=== PATIENT | female | born 1945 | race Caucasian/White ===

== ENCOUNTER 2024-04-03 08:42 | Day surgery (SDC) | payer OTHER ==
[2024-04-03 08:40] LABS: Absolute Eosinophils 0.3 K/uL (0-0.5); Absolute Lymphocytes (CBC) 1.4 K/uL (0.7-4.9); Absolute Monocytes 0.4 K/uL (0.1-1.3); Absolute Neutrophil 2.6 K/uL (1.8-8.0); Basophils % 0.8 % (0-1.3); Eosinophils % 5.7 % (0-4.4); Hemoglobin 11.6 g/dL (12.0-15.0); Lymphocytes % 29.8 % (15.3-44.8); MCH 29.3 pg (27.0-35.0); MCHC 33.1 g/dL (32.0-36.0); MCV 88.5 fL (80-100); MPV 7.1 fL (7.6-11.3); Monocytes % 8.3 % (3.3-12.3); Neutrophils % 55.4 % (41.7-73.7); Platelets 233 thou/uL (152-406); RBC Red Blood Cell Count 3.95 M/uL (3.86-4.86); Red Cell Distribution Width 13.9 % (12.1-15.2)
[2024-04-03 08:52] LABS: Anion Gap 5.8 mEq/L (5.0-15.0); Potassium 3.8 mEq/L (3.5-5.1)
[2024-04-03] MEDS ORDERED: CEFAZOLIN SODIUM 1 GM/VIAL ONE (08:56)
[2024-04-03] MEDS ORDERED: Ringers Lactate 1,000 ML IV ONE (08:56)
[2024-04-03] MEDS ORDERED: KETOROLAC 30 MG/ML INJ ONE (09:05)
[2024-04-03] MEDS ORDERED: propofoL 200 MG/20 ML VIAL IV ONE (09:05)
[2024-04-03] MEDS ORDERED: dexAMETHasone 10 MG/ML VIAL ONE (09:05)
[2024-04-03] MEDS ORDERED: ONDANSETRON 4 MG/2 ML VIAL ONE (09:05)
[2024-04-03] MEDS ORDERED: MIDAZOLAM HCL 2 MG/2 ML INJ ONE (09:05)
[2024-04-03] MEDS ORDERED: LIDOCAINE 1% MPF 5 ML VIAL ONE (09:05)
[2024-04-03] MEDS ORDERED: FENTANYL CITR 100 MCG/2 ML ONE (09:05)
[2024-04-03] MEDS ORDERED: ROCURONIUM 50 MG/5 ML VIAL IV ONE (09:05)
--- NOTE | 2024-04-03 09:47 | RAD REPORT ---
EXAM DESCRIPTION: RAD - Chest Pa And Lat (2 Views) - 04/03/2024 8:44 am CLINICAL HISTORY: pre op pending hernia repair Chest pain. COMPARISON: Chest Pa And Lat (2 Views) dated 11/04/2016 TECHNIQUE: PA and lateral views of the chest were obtained. FINDINGS: The lungs are hyperexpanded compatible with COPD. The heart is upper limit of normal in si ze. No fracture or aggressive bony process. IMPRESSION: COPD without acute process identified. The USPSTF recommends annual screening for lung cancer with low-dose CT (LDCT) in adults aged 50 to 8 0 years who have a 20 pack-year smoking history and currently smoke or have quit within the past 15 y ears.
[2024-04-03] MEDS ORDERED: EPHEDRINE SULF 50 MG/ML VIAL ONE (10:23)
--- NOTE | 2024-04-03 11:48 | P.BOP ---
Preoperative diagnosis: tender bilateral inguinal hernias Postoperative diagnosis: same Primary procedure: 1. Open repair of tender right inguinal hernia with mesh Secondary procedure: 2. Open repair of tender left inguinal hernia with mesh Estimated blood loss: <10cc Specimen: sac left Findings: bilateral inguinal hernias Anesthesia: General Complications: None Transferred to: Recovery Room Condition: Good
[2024-04-03] MEDS: HYDROCODONE/APAP 5/325 MG TAB ONE (13:00)
[2024-04-03 13:17] VITALS: BP 130/49; TEMP 97.6
[2024-04-03 13:36] VITALS: O2SAT 97
--- NOTE | 2024-04-04 16:25 | EKG ---
Test Date: 2024-04-03 Test Time: 08:29:00 Cyber Security Specialist: JANELL MEASUREMENT RESULTS: Intervals: Rate: 59 TX: 170 QRSD: 86 QT: 446 QTc: 441 [place]: P: 60 TX: 170 QRS: 59 T: 59 INTERPRETIVE STATEMENTS: Sinus bradycardia Otherwise normal ECG No previous ECG available for comparison Electronically Signed On 04-04-24 16:22:35 CDT by Juan Luis Almazan
== END 2024-04-03 13:30 | disposition home or self-care (01) ==
LOC: OR 08:42
PROVIDERS: ATTEND Surgery
PROC: 0YUA0JZ Supplement Bilateral Inguinal Region with Synthetic Substitute, Open Approach (ICD-10-PCS; principal; 2024-04-03 10:00)
DX: K40.20 Bilateral inguinal hernia, without obstruction or gangrene, not specified as recurrent (principal); I10 Essential (primary) hypertension; E78.5 Hyperlipidemia, unspecified; M81.0 Age-related osteoporosis without current pathological fracture
CPT/HCPCS: 93005; 85025; 80048; 36415; 88302; 71046; 49505; C1781; J2704; J2001; J3010; J1100; J2405; J7120; J0690; J2250